=== PATIENT | male | born 1970 | race African-American/Black ===

== ENCOUNTER 2018-05-16 08:38 | Emergency (ER) | payer OTHER | END 2018-05-16 10:37 | disposition home or self-care (01) | LOC: FTE 10:37 | DX: L29.9 Pruritus, unspecified (principal); F17.210 Nicotine dependence, cigarettes, uncomplicated | CPT/HCPCS: 99282; Z7502 ==

== ENCOUNTER → 2018-11-02 | Emergency (ER) | payer MEDICARE, OTHER | END | disposition home or self-care (01) | LOC: FTE 09:39 | DX: F17.210 Nicotine dependence, cigarettes, uncomplicated (principal) | CPT/HCPCS: 99281 ==